=== PATIENT | female | born 1990 | race Caucasian/White ===

== ENCOUNTER → 2021-07-03 04:11 | Outpatient (CLI) | payer OTHER, SELFPAY ==
[2021-07-03 18:05] LABS: SARS-CoV-2 RNA PCR Negative
== END ==
PROVIDERS: PCP Family Medicine; Visit Provider Family Medicine
DX: Z20.822 Contact with and (suspected) exposure to COVID-19 (principal); R05.9 Cough, unspecified
CPT/HCPCS: C9803; U0003; U0005

== ENCOUNTER 2023-08-07 17:08 | Outpatient (CLI) | payer OTHER, SELFPAY ==
[2023-08-07 18:05] LABS: Basophils Percent Auto 0.4 % (0.2-1.2); Eosinophils Absolute Auto 0.1 K/mm3 (0-0.3); Eosinophils Percent Auto 0.6 % (0-4.4); Hematocrit 39.4 % (37.0-47.0); Hemoglobin 12.9 g/dL (12.0-15.0); Immature Granulocyte Absolute 0.03 K/mm3 (0.00-0.031); Immature Granulocyte Percent A 0.3 % (0-0.5); Lymphocytes Absolute Auto 3.13 K/mm3 (0.9-3.2); Lymphocytes Percent Auto 27.7 % (18.3-44.2); Mean Corpuscular HGB Conc 32.7 g/dl (32-36); Mean Corpuscular Hemoglobin 28.5 pg (26-34); Mean Platelet Volume 9.8 fl (7.4-10.4); Monocytes Absolute Auto 0.6 K/mm3 (0.1-0.6); Monocytes Percent Auto 4.9 % (2.6-8.5); Neutrophils Absolute Auto 7.5 K/mm3 (1.3-6.7); Neutrophils Percent Auto 66.1 % (45.5-73.1); Platelet Count Result 283 k/mm3 (150-375); Red Blood Count 4.53 M/mm3 (4.2-5.4); Red Cell Distribution Width 12.6 % (11.5-14.5); White Blood Count 11.3 K/mm3 (4.5-10.0)
[2023-08-07 18:45] LABS: HIV 1/2 Ab P24 Ag Result Negative (Negative)
[2023-08-07 19:53] LABS: Hepatitis B Surface Antigen Negative (Negative); Rubella IgG Antibody 9.5 IU/ML
[2023-08-07 20:24] LABS: Hepatitis B Surface Anti Res Negative
[2023-08-10 13:35] LABS: Rapid Plasma Reagin Non-Reactive (NonReactive)
[2023-08-12 11:22] LABS: CMV IgG Antibody <0.60 U/mL (<0.60)
[2023-08-19 08:48] LABS: CF Result NEGATIVE (NEGATIVE); SMA 2.0 RISK VARIANT NOT DETECTED
[2023-08-19 14:59] LABS: SMA Results Received Yes
== END 2023-08-07 17:09 | disposition home or self-care (01) ==
PROVIDERS: PCP Family Medicine; Visit Provider Obstetrics & Gynecology
DX: N91.2 Amenorrhea, unspecified (principal)
CPT/HCPCS: 36415; 81220; 81329; 84702; 85025; 86592; 86644; 86703; 86706; 86747; 86762; 86787; 86850; 86900; 86901; 87086; 87340; G0432

== ENCOUNTER 2023-08-08 08:39 | Outpatient (CLI) | payer OTHER, SELFPAY ==
[2023-08-08 11:05] LABS: Glucose 1 Hour PP 50gm Dose 112 mg/dL
== END 2023-08-08 08:40 | disposition home or self-care (01) ==
PROVIDERS: PCP Family Medicine; Visit Provider Obstetrics & Gynecology
DX: N91.2 Amenorrhea, unspecified (principal)
CPT/HCPCS: 36415; 82947; 86850; 86900; 86901

== ENCOUNTER 2023-09-27 08:18 | Emergency (ER) | payer OTHER, SELFPAY ==
[2023-09-27 08:25] VITALS: BP 80/61; PULSE 92; RESP 20; TEMP 36.4; O2SAT 98
--- NOTE | 2023-09-27 08:45 | ED.GENADULT ---
HPI - General Adult General Chief complaint: Upper Respiratory Infection Stated complaint: Cough,Congestion,Sore Throat Source: patient Mode of arrival: ambulatory Limitations: no limitations History of Present Illness HPI narrative: Patient presents for evaluation of cough for the last 2 days. Cough is productive of green/ yellow sputum. She denies any fever, chills, nausea, vomiting, diarrhea, otalgia, sore throat, or chest pain. No recent specific sick contacts to her knowledge however she attended several holiday events recently so very well could have come in contact with someone who was ill. She has been taking tylenol for her symptoms. She is currently , 17 weeks gestation. She denies any vaginal bleeding or abdominal pain. She has an underlying history of asthma. Her albuterol inhaler seems to be helping. She took a home COVID test five days ago which was negative. Related Data Home Medications Medication Instructions Recorded Confirmed lamotrigine 100 mg tablet 100 mg PO BID 03/03/23 09/27/23 sertraline 50 mg tablet 50 mg PO DAILY 03/03/23 09/27/23 vit#24-iron amino acid 1 tablet PO DAILY 09/27/23 09/27/23 chelat-folic acid 30 mg-975 mcg tablet Allergies Allergy/AdvReac Type Severity Reaction Status Date / Time Penicillins AdvReac Mild Rash Verified 09/27/23 08:21 Sulfa (Sulfonamide AdvReac Mild Rash Verified 09/27/23 08:51 Antibiotics) Review of Systems Review of Systems: CONSTITUTIONAL: Denies fever, chills, or sweats. EYES: Denies visual changes, redness, or discharge. ENT: Denies rhinorrhea, congestion, sore throat, or otalgia. CARDIOVASCULAR: Denies chest pain, palpitations, or edema. RESPIRATORY: Reports productive cough or yellow/green sputum GASTROINTESTINAL: Denies abdominal pain, nausea, vomiting, or diarrhea. GENITOURINARY: Denies dysuria or hematuria. SKIN: Denies rash or itching. MUSCULOSKELETAL: Denies back pain, joint pain, or myalgia. NEUROLOGIC: Denies headache, numbness, dizziness, or weakness. PSYCHIATRIC: Denies anxiety or depression. [facility] Past Medical History Medical History Asthma rx meds Bipolar 2 disorder rx meds Surgical History Surgical History (Reviewed 09/27/23 @ 08:50 by Romero Richey [facility], ) History of orthopedic surgery (~2010) hand repaired Family History Family History (Reviewed 09/27/23 @ 08:50 by Romero Richey [facility], ) Grandparent CHF (congestive heart failure) maternal grandmother Lung cancer maternal grandfather Social History Social History (Reviewed 09/27/23 @ 08:50 by Romero Richey [facility], ) Smoking status: Never smoker Alcohol intake: never Substance use: never Substance use type: does not use Lack of Transportation: No Lack of Food: Never True Current Housing: I Have Housing Concerned About Future Housing: No Difficulty Paying Gas/Electric Bills: No Difficulty Paying for Meds: No Currently Unemployed: No Education: Bachelor's Degree Difficulty w/ Childcare or Family Care: No Living arrangements: other Additional living arrangements comments: Occupation/Education: occupation Additional occupation/education comments: marketing Gender identity (if verbalized by the patient): Female Sexual Orientation (if Verbalized by the Patient): Straight or Heterosexual Exam Narrative: GENERAL: Well-appearing, well-nourished, and in no acute distress. HEAD: Normocephalic, atraumatic. EYES: PERRLA and EOMI. ENT: Nares clear, no rhinorrhea or epistaxis. Mucous membranes moist. Oropharynx without tonsillar hypertrophy exudate or other lesions. Bilateral TMs pearly hoang nonbulging NECK: Supple. No adenopathy or masses. No carotid bruits or JVD CHEST: Cough present on exam. Clear to auscultation. No respiratory distress. No wheezes rales or rhonchi HEART: Regular rate and rhythm.
== END 2023-09-27 09:03 | disposition home or self-care (01) ==
PROVIDERS: Emergency Provider Nurse Practitioner; PCP Family Medicine
DX: U07.1 COVID-19 (principal); J45.909 Unspecified asthma, uncomplicated; F31.81 Bipolar II disorder
CPT/HCPCS: 87426; 87804; 99213; C9803; G0463

== ENCOUNTER 2023-12-29 13:47 | Outpatient (CLI) | payer BC, SELFPAY ==
[2023-12-29] VITALS (8 sets, daily range): BP systolic 104–120; BP diastolic 69–78; PULSE 79–93
[2023-12-29 14:33] LABS: Basophils Percent Auto 0.4 % (0.2-1.2); Eosinophils Absolute Auto 0.1 K/mm3 (0-0.3); Eosinophils Percent Auto 0.7 % (0-4.4); Hematocrit 37.5 % (37.0-47.0); Immature Granulocyte Absolute 0.16 K/mm3 (0.00-0.031); Immature Granulocyte Percent A 1.5 % (0-0.5); Lymphocytes Absolute Auto 2.56 K/mm3 (0.9-3.2); Lymphocytes Percent Auto 23.4 % (18.3-44.2); Mean Corpuscular Hemoglobin 28.2 pg (26-34); Mean Corpuscular Volume 88.2 fl (80-100); Mean Platelet Volume 9.8 fl (7.4-10.4); Monocytes Absolute Auto 0.6 K/mm3 (0.1-0.6); Monocytes Percent Auto 5.3 % (2.6-8.5); Neutrophils Absolute Auto 7.5 K/mm3 (1.3-6.7); Neutrophils Percent Auto 68.7 % (45.5-73.1); Platelet Count Result 289 k/mm3 (150-375); Red Blood Count 4.25 M/mm3 (4.2-5.4); Red Cell Distribution Width 12.6 % (11.5-14.5)
[2023-12-29 14:41] LABS: Appearance Urine Clear (Clear); Bacteria Urine Rare /hpf; Bilirubin Urine Negative (Negative); Blood Urine Negative (Negative); Color Urine Yellow (Yellow); Glucose Urine UA Negative (Negative); Ketones Urine Negative (Negative); Leukocyte Esterase Ur Trace LEU/UL (Negative); Nitrate Urine Negative (Negative); Non Pathogenic Casts 0-2; Protein Urine Negative (Negative); RBC Urine 0-2 /hpf (0-2); Specific Grav Ur 1.012 (1.001-1.035); Squamous Epithelial Cell Urine None Seen /hpf (Few); Urobilinogen Urine 0.2 mg/dL (<2.0); WBC Urine 0-5 /hpf (0-3); pH Urine 7.5 (5.0-9.0)
[2023-12-29 14:47] LABS: Alanine Aminotransferase 11 U/L (6-35); Albumin Level 3.6 g/dL (3.5-5.1); Alkaline Phosphatase 132 U/L (38-126); Anion Gap 7 mmol/L (4-12); Aspartate Amino Transferase 16 U/L (14-36); Bilirubin,Total 0.4 mg/dL (0.2-1.3); Blood Urea Nitrogen 6 mg/dL (7-17); Calcium 9.1 mg/dL (8.4-10.2); Carbon Dioxide 20 mmol/L (22-30); Chloride 107 mmol/L (98-107); Estimated Glomerular Filt Rate > 60; Glucose 114 mg/dL (65-110); Potassium 3.6 mmol/L (3.4-5.0); Sodium 134 mmol/L (137-145); Uric Acid 2.8 mg/dL (2.5-7.5)
[2023-12-29 14:54] LABS: Add Urine Microscopic? YES
[2023-12-29 15:17] LABS: Creatinine Urine 63.2 mg/dL; Total Protein Urine Random 20 mg/dL; Ur Ttl Prot Creatinine Ratio 0.32 mg/mg (0-0.20)
--- NOTE | 2023-12-29 15:29 | PC.NURSE ---
1528: RN phoned Dr. Murrell no answer at this time.
--- NOTE | 2023-12-29 16:11 | PC.NURSE ---
1546: Dr. Murrell called back, RN reported patient's complaints of swelling, blood pressures, and lab results. Orders to discharge patient home with a 24 hour urine.
== END 2023-12-29 16:06 | disposition home or self-care (01) ==
LOC: ANHOBOP 14:06 → ANHOBPP 14:08
PROVIDERS: PCP Family Medicine; Visit Provider Student in an Organized Health Care Education/Training Program
DX: O13.9 Gestational [pregnancy-induced] hypertension without significant proteinuria, unspecified trimester (principal); Z3A.00 Weeks of gestation of pregnancy not specified
CPT/HCPCS: 36415; 59025; 80053; 81001; 82570; 84156; 84550; 85025; 99199

== ENCOUNTER 2023-12-30 16:29 | Outpatient (CLI) | payer BC, SELFPAY ==
[2023-12-30 17:02] VITALS: BMI 33.7
[2023-12-30 18:43] LABS: Collection Time Urine 24 HOURS
[2023-12-30 18:53] LABS: Total Volume 24 Hour Urine 2050 ml
[2023-12-30 18:54] LABS: Patient Weight 202 Lbs; Total Volume 24 Hour Urine 2050 ml
[2023-12-30 18:59] LABS: Total Protein Urine 24 Hr 348 mg/24hr (28-141); Total Protein Urine Random 17 mg/dL
[2023-12-30 19:00] LABS: Creatinine Clearance Urine 162.5 ml/min (75-125); Creatinine Urine 65.3 mg/dL
== END 2023-12-30 16:30 | disposition home or self-care (01) ==
LOC: ANHOBOP 16:53
PROVIDERS: PCP Family Medicine; Visit Provider Student in an Organized Health Care Education/Training Program
DX: O13.9 Gestational [pregnancy-induced] hypertension without significant proteinuria, unspecified trimester (principal)
CPT/HCPCS: 81050; 82575; 84156

== ENCOUNTER 2024-01-05 20:52 | Outpatient (CLI) | payer BC, SELFPAY ==
[2024-01-05] VITALS (18 sets, daily range): BP systolic 115–122; BP diastolic 70–73; PULSE 70–90; TEMP 36.4; O2SAT 99–100; BMI 33.7
--- NOTE | 2024-01-05 20:52 | PC.NURSE ---
Pt arrives to unit with reports of increased swelling.
[2024-01-05 21:38] LABS: Basophils Percent Auto 0.2 % (0.2-1.2); Eosinophils Absolute Auto 0.1 K/mm3 (0-0.3); Eosinophils Percent Auto 0.6 % (0-4.4); Hematocrit 34.8 % (37.0-47.0); Hemoglobin 11.6 g/dL (12.0-15.0); Immature Granulocyte Absolute 0.11 K/mm3 (0.00-0.031); Immature Granulocyte Percent A 0.9 % (0-0.5); Lymphocytes Absolute Auto 3.29 K/mm3 (0.9-3.2); Lymphocytes Percent Auto 27.2 % (18.3-44.2); Mean Corpuscular HGB Conc 33.3 g/dl (32-36); Mean Corpuscular Hemoglobin 28.7 pg (26-34); Mean Corpuscular Volume 86.1 fl (80-100); Mean Platelet Volume 10.2 fl (7.4-10.4); Monocytes Absolute Auto 0.8 K/mm3 (0.1-0.6); Monocytes Percent Auto 6.8 % (2.6-8.5); Neutrophils Absolute Auto 7.8 K/mm3 (1.3-6.7); Neutrophils Percent Auto 64.3 % (45.5-73.1); Platelet Count Result 240 k/mm3 (150-375); Red Blood Count 4.04 M/mm3 (4.2-5.4); Red Cell Distribution Width 12.7 % (11.5-14.5); White Blood Count 12.1 K/mm3 (4.5-10.0)
[2024-01-05 21:48] LABS: Alanine Aminotransferase 9 U/L (6-35); Albumin Level 3.6 g/dL (3.5-5.1); Alkaline Phosphatase 139 U/L (38-126); Anion Gap 4 mmol/L (4-12); Aspartate Amino Transferase 16 U/L (14-36); Bilirubin,Total 0.3 mg/dL (0.2-1.3); Blood Urea Nitrogen 8 mg/dL (7-17); Calcium 8.7 mg/dL (8.4-10.2); Carbon Dioxide 22 mmol/L (22-30); Chloride 107 mmol/L (98-107); Estimated Glomerular Filt Rate > 60; Glucose 87 mg/dL (65-110); Potassium 3.9 mmol/L (3.4-5.0); Sodium 133 mmol/L (137-145); Uric Acid 2.7 mg/dL (2.5-7.5)
[2024-01-05 21:49] LABS: Creatinine Urine 79.2 mg/dL; Total Protein Urine Random 16 mg/dL
--- NOTE | 2024-01-05 22:17 | PC.NURSE ---
Dr. Leung called, update on pt, blood pressure, labs, and swelling. Orders received to discharge pt with instructions to keep next scheduled appointment and when to return to the unit.
--- NOTE | 2024-01-05 22:24 | PC.NURSE ---
Pt discharged with hypertension in handout, instructions to keep next scheduled appointment, and when to return to the unit.
== END 2024-01-05 22:24 | disposition home or self-care (01) ==
LOC: ANHOBOP 21:03 → ANHOBPP 01-11 06:29
PROVIDERS: PCP Family Medicine; Visit Provider Obstetrics & Gynecology
DX: O12.00 Gestational edema, unspecified trimester (principal); Z3A.00 Weeks of gestation of pregnancy not specified
CPT/HCPCS: 36415; 59025; 80053; 82570; 84156; 84550; 85025; 99199

== ENCOUNTER 2024-01-12 16:08 | Observation (INO) | payer BC, SELFPAY ==
[2024-01-12 16:41] VITALS: BP 121/81; PULSE 92
[2024-01-12 16:44] VITALS: BP 119/81; PULSE 89
[2024-01-12 16:59] VITALS: BP 113/75; PULSE 92
[2024-01-12 17:08] LABS: Appearance Urine Clear (Clear); Bacteria Urine Rare /hpf; Bilirubin Urine Negative (Negative); Blood Urine 3+ (Negative); Color Urine Yellow (Yellow); Glucose Urine UA Negative (Negative); Ketones Urine Trace mg/dL (Negative); Leukocyte Esterase Ur Trace LEU/UL (Negative); Nitrate Urine Negative (Negative); Non Pathogenic Casts 0-2; Protein Urine 1+ mg/dL (Negative); RBC Urine >100 /hpf (0-2); Specific Grav Ur 1.019 (1.001-1.035); Squamous Epithelial Cell Urine Occasional /hpf (Few)
[2024-01-12 17:14] LABS: Add Urine Microscopic? YES
[2024-01-12 17:29] VITALS: BP 119/74; PULSE 83
[2024-01-12] MEDS: TERBUTALINE SULFATE 1 MG/ML VIAL 0.25 MG SUB-Q (17:40)
[2024-01-12 17:59] VITALS: BP 126/83; PULSE 113
[2024-01-12 18:21] VITALS: BMI 34.2
--- NOTE | 2024-01-12 18:21 | OBADM ---
This patient, Debbie Lauren, admitted to the OB room OB Post 113 for observation. Patient/family oriented to hospital policies and general routines including ID bracelet, bed and alarms, visiting hours, pain management, procedures, bathroom and other care routines, personal items, smoking policy, room service/diet, and visiting hours. Patient/Family are encouraged to report perceived risks to care and to ask questions if they do not understand what they are told or what they should do.
[2024-01-12 18:29] VITALS: BP 130/77; PULSE 101
--- NOTE | 2024-01-13 09:12 | PM.OBTRLD ---
OB - Triage/Final Diagnosis Visit Information Reason for evaluation: threatened labor Comments/Additional reasons for admission: I have assessed the risk for this patient, Debbie Lauren, and determined that she would benefit from observation care. Evaluation Laboratory results: Laboratory Tests 01/12/24 16:54 Urine Color Yellow Urine Appearance Clear Urine pH 8.0 Ur Specific [place] 1.019 Urine Protein 1+ H Urine Glucose (UA) Negative Urine Ketones Trace H Ur Blood (Man) 3+ H Urine Nitrate Negative Urine Bilirubin Negative Urine Urobilinogen 1.0 Leukocyte Esterase Rfl Trace H Urine RBC >100 H Urine WBC 6-10 H Ur Squamous Epith Cells Occasional Urine Bacteria Rare Urine Casts 0-2 Vital signs: Vital Signs - 24 hr 01/12/24 16:41 01/12/24 16:44 01/12/24 16:59 Pulse Rate 92 89 92 Blood Pressure 121/81 119/81 113/75 01/12/24 17:29 01/12/24 17:59 01/12/24 18:29 Pulse Rate 83 113 H 101 H Blood Pressure 119/74 126/83 130/77
== END 2024-01-12 18:47 | disposition home or self-care (01) ==
PROVIDERS: Admitting Provider Obstetrics & Gynecology; PCP Family Medicine; Visit Provider Obstetrics & Gynecology
DX: O47.03 False labor before 37 completed weeks of gestation, third trimester (principal); Z3A.32 32 weeks gestation of pregnancy
CPT/HCPCS: 81001; 84112; 87086; 87088; 96372; G0378; G0379; J3105

== ENCOUNTER 2024-01-31 09:57 | Outpatient (CLI) | payer BC, SELFPAY ==
--- NOTE | ~2024-01-31 | US_ITS ---
EXAMINATION: US OB BPP wo non-stress DATE: 01/31/2024 11:50 INDICATION: Nonreassuring heart tones. Third trimester. TECHNIQUE: Real-time pelvic ultrasound was performed. COMPARISON: Ultrasound 01/22/2024 FINDINGS: There is a single living fetus in vertex presentation. The placenta is posterior and on the right. F etal heart rate is 138 beats per minute (bpm). The amniotic fluid index is 14.5 cm, which is normal. Biophysical profile performed by the technologist: breathing (30 sec sustained breathing in 30 minutes): 2 out of 2 movement (3 gross body movements in 30 minutes): 2 out of 2 tone (one episode of evxkdgo-zkgpwoymt-evptpzp limb movement): 2 out of 2 Amniotic fluid pocket (2 cm): 2 out of 2 Total score: 8 out of 8 IMPRESSION: 1. Single living fetus in vertex presentation. 2. Biophysical profile 8 out of 8. Reviewed, dictated and finalized at location A.
--- NOTE | 2024-01-31 10:16 | PC.NURSE ---
pt reports having increased swelling in her face and lower extermities. Pt also reports numbness in her face that is new today. Pt denies blurred vision, no headache, no epigastric pain. Pt does report that the right side of her face has been swelling more but stated that shes been sleeping on her right side more often and the swelling does go down over several hours.
[2024-01-31 10:25] LABS: Basophils Percent Auto 0.4 % (0.2-1.2); Eosinophils Percent Auto 0.3 % (0-4.4); Hematocrit 34.4 % (37.0-47.0); Hemoglobin 11.6 g/dL (12.0-15.0); Immature Granulocyte Percent A 1.1 % (0-0.5); Lymphocytes Absolute Auto 2.57 K/mm3 (0.9-3.2); Lymphocytes Percent Auto 28.1 % (18.3-44.2); Mean Corpuscular HGB Conc 33.7 g/dl (32-36); Mean Corpuscular Hemoglobin 28.3 pg (26-34); Mean Corpuscular Volume 83.9 fl (80-100); Mean Platelet Volume 11.1 fl (7.4-10.4); Monocytes Absolute Auto 0.5 K/mm3 (0.1-0.6); Monocytes Percent Auto 5.6 % (2.6-8.5); Neutrophils Absolute Auto 5.9 K/mm3 (1.3-6.7); Neutrophils Percent Auto 64.5 % (45.5-73.1); Platelet Count Result 198 k/mm3 (150-375); Red Cell Distribution Width 12.8 % (11.5-14.5); White Blood Count 9.1 K/mm3 (4.5-10.0)
[2024-01-31 10:30] VITALS: BP 123/76; PULSE 95
[2024-01-31 10:32] LABS: Appearance Urine Clear (Clear); Bacteria Urine Rare /hpf; Bilirubin Urine Negative (Negative); Blood Urine Negative (Negative); Color Urine Yellow (Yellow); Glucose Urine UA Negative (Negative); Ketones Urine Negative (Negative); Leukocyte Esterase Ur Trace LEU/UL (Negative); Nitrate Urine Negative (Negative); Non Pathogenic Casts 0-2; Protein Urine Trace mg/dL (Negative); RBC Urine 0-2 /hpf (0-2); Specific Grav Ur 1.006 (1.001-1.035); Squamous Epithelial Cell Urine Occasional /hpf (Few); Urobilinogen Urine 0.2 mg/dL (<2.0); WBC Urine 0-5 /hpf (0-3); pH Urine 7.5 (5.0-9.0)
[2024-01-31 10:35] LABS: Add Urine Microscopic? YES; Alanine Aminotransferase 9 U/L (6-35); Albumin Level 3.4 g/dL (3.5-5.1); Alkaline Phosphatase 199 U/L (38-126); Anion Gap 7 mmol/L (4-12); Aspartate Amino Transferase 17 U/L (14-36); Bilirubin,Total 0.4 mg/dL (0.2-1.3); Blood Urea Nitrogen 7 mg/dL (7-17); Carbon Dioxide 20 mmol/L (22-30); Chloride 110 mmol/L (98-107); Estimated Glomerular Filt Rate > 60; Glucose 85 mg/dL (65-110); Potassium 3.9 mmol/L (3.4-5.0); Sodium 137 mmol/L (137-145); Uric Acid 4.4 mg/dL (2.5-7.5)
--- NOTE | 2024-01-31 10:43 | PC.NURSE ---
Dr. Leung updated on pt blood pressures and lab results. MD aware of pt complain of her face having numbness. tracing reviewed with provider. MD order BPP if NST does not become reactive.
[2024-01-31 10:45] VITALS: BP 117/74; PULSE 82
[2024-01-31 10:48] LABS: Creatinine Urine 35.3 mg/dL; Total Protein Urine Random 37 mg/dL; Ur Ttl Prot Creatinine Ratio 1.05 mg/mg (0-0.20)
[2024-01-31 11:00] VITALS: BP 122/77; PULSE 88
--- NOTE | 2024-01-31 11:58 | PC.NURSE ---
Dr. Leung updated on pt. P/C Ratio reported. ordered 24 hour urine be completed and turned in tomorrow so results will be available at her appt with him on Thursday. BPP 05/05. okay with pt going home.
[2024-01-31 12:07] VITALS: BP 123/76; PULSE 93
== END 2024-01-31 12:04 | disposition home or self-care (01) ==
LOC: ANHOBOP 10:01 → ANHOBPP 10:01
PROVIDERS: PCP Family Medicine; Visit Provider Obstetrics & Gynecology
DX: O13.9 Gestational [pregnancy-induced] hypertension without significant proteinuria, unspecified trimester (principal); Z3A.00 Weeks of gestation of pregnancy not specified
CPT/HCPCS: 36415; 59025; 76819; 80053; 81001; 82570; 84156; 84550; 85025; 99199

== ENCOUNTER 2024-02-01 12:35 | Outpatient (NON) | payer BC, SELFPAY ==
[2024-02-01 13:04] VITALS: BMI 35.6
[2024-02-01 13:48] LABS: Collection Time Urine 24 HOURS
[2024-02-01 13:58] LABS: Total Protein Urine Random 44 mg/dL
[2024-02-01 13:59] LABS: Creatinine Urine 101.2 mg/dL; Patient Weight 213 Lbs
[2024-02-01 14:00] LABS: Creatinine Clearance Urine 140.1 ml/min (75-125); Total Protein Urine 24 Hr 616 mg/24hr (28-141); Total Volume 24 Hour Urine 1400 ml
== END 2024-02-01 12:36 | disposition home or self-care (01) ==
LOC: ANHOBOP 12:58
PROVIDERS: PCP Family Medicine; Visit Provider Obstetrics & Gynecology
DX: O13.9 Gestational [pregnancy-induced] hypertension without significant proteinuria, unspecified trimester (principal); Z3A.00 Weeks of gestation of pregnancy not specified
CPT/HCPCS: 36415; 59025; 76819; 80053; 81001; 81050; 82570; 82575; 84156; 84550; 85025; 99199

== ENCOUNTER 2024-02-03 07:27 | Outpatient (CLI) | payer BC, SELFPAY ==
--- NOTE | ~2024-02-03 | US_ITS ---
EXAMINATION: US OB BPP wo non-stress DATE: 02/03/2024 09:19 INDICATION: Nonreactive nonstress test. TECHNIQUE: Real-time pelvic ultrasound was performed. COMPARISON: Ultrasound 01/31/2024 FINDINGS: There is a single living fetus in vertex presentation. The placenta is right posterior, far from the cervix. heart rate is 147 beats per minute (bpm). The deepest vertical pocket is 3.2 cm, which is normal. Biophysical profile performed by the technologist: breathing (30 sec sustained breathing in 30 minutes): 2 out of 2 movement (3 gross body movements in 30 minutes): 2 out of 2 tone (one episode of ulupmdb-kwqvhncws-milkehs limb movement): 2 out of 2 Amniotic fluid pocket (2 cm): 2 out of 2 Total score: 8 out of 8 IMPRESSION: 1. Single living fetus in vertex presentation. 2. Biophysical profile 8 out of 8. Reviewed, dictated and finalized at location A.
[2024-02-03 07:47] VITALS: BP 115/79; PULSE 94
[2024-02-03 08:00] VITALS: BP 114/82; PULSE 90
[2024-02-03 08:02] LABS: Alanine Aminotransferase 10 U/L (6-35); Albumin Level 3.4 g/dL (3.5-5.1); Alkaline Phosphatase 185 U/L (38-126); Anion Gap 8 mmol/L (4-12); Aspartate Amino Transferase 16 U/L (14-36); Bilirubin,Total 0.3 mg/dL (0.2-1.3); Blood Urea Nitrogen 8 mg/dL (7-17); Calcium 8.6 mg/dL (8.4-10.2); Carbon Dioxide 18 mmol/L (22-30); Chloride 109 mmol/L (98-107); Estimated Glomerular Filt Rate > 60; Glucose 109 mg/dL (65-110); Potassium 3.9 mmol/L (3.4-5.0); Sodium 135 mmol/L (137-145); Uric Acid 3.8 mg/dL (2.5-7.5)
[2024-02-03 08:15] VITALS: BP 120/86; PULSE 85
[2024-02-03 08:30] VITALS: BP 125/84; PULSE 86
[2024-02-03 08:58] LABS: Appearance Urine Clear (Clear); Bacteria Urine 1+ /hpf; Bilirubin Urine Negative (Negative); Blood Urine Negative (Negative); Color Urine Yellow (Yellow); Glucose Urine UA Negative (Negative); Ketones Urine Negative (Negative); Leukocyte Esterase Ur 1+ LEU/UL (Negative); Nitrate Urine Negative (Negative); Non Pathogenic Casts 0-2; Protein Urine 1+ mg/dL (Negative); RBC Urine 0-2 /hpf (0-2); Specific Grav Ur 1.009 (1.001-1.035); Squamous Epithelial Cell Urine Occasional /hpf (Few); Urobilinogen Urine 0.2 mg/dL (<2.0); pH Urine 7.5 (5.0-9.0)
--- NOTE | 2024-02-03 09:00 | PC.NURSE ---
0900: OB responded to page. OB stated he is reviewing the tracing, lab results, and blood pressures. Dr. Leung ordered a BPP and would like RN to call him back with the results of BPP and the rest of the lab results.
[2024-02-03 09:03] VITALS: BP 115/79; PULSE 94
[2024-02-03 09:09] LABS: Creatinine Urine 70.5 mg/dL; Total Protein Urine Random 43 mg/dL; Ur Ttl Prot Creatinine Ratio 0.61 mg/mg (0-0.20)
[2024-02-03 09:19] LABS: Add Urine Microscopic? YES
[2024-02-03 09:20] VITALS: BP 115/79; PULSE 87
[2024-02-03 09:23] LABS: Hematocrit 36.1 % (37.0-47.0); Hemoglobin 11.8 g/dL (12.0-15.0); Mean Corpuscular HGB Conc 32.7 g/dl (32-36); Mean Corpuscular Volume 85.7 fl (80-100); Mean Platelet Volume 11.8 fl (7.4-10.4); Platelet Count Result 191 k/mm3 (150-375); Red Blood Count 4.21 M/mm3 (4.2-5.4); Red Cell Distribution Width 12.8 % (11.5-14.5); White Blood Count 9.5 K/mm3 (4.5-10.0)
--- NOTE | 2024-02-03 09:59 | PC.NURSE ---
0940: RN reported BPP of 05/05 and lab results to OB. Orders to discharge patient home with instructions to come for her scheduled NST on Thursday, then perform a 24 hour urine on Thursday to return to the hospital on Thursday. Orders to perform an NST and PIH labs when patient comes to turn in her 24 hour urine sample on Thursday (02/08/24).
== END 2024-02-03 09:50 ==
LOC: ANHOBOP 07:33 → ANHLDR 07:33
PROVIDERS: PCP Family Medicine; Visit Provider Obstetrics & Gynecology
DX: O13.9 Gestational [pregnancy-induced] hypertension without significant proteinuria, unspecified trimester (principal); Z3A.00 Weeks of gestation of pregnancy not specified
CPT/HCPCS: 36415; 59025; 76819; 80053; 81001; 82570; 84156; 84550; 85025; 87086; 87088; 99199

== ENCOUNTER 2024-02-08 07:02 | Outpatient (NON) | payer BC, SELFPAY ==
[2024-02-08 07:37] VITALS: BMI 36.9
[2024-02-08 10:47] LABS: Collection Time Urine 24 HOURS
[2024-02-08 10:57] LABS: Total Protein Urine Random 109 mg/dL
[2024-02-08 10:59] LABS: Creatinine Urine 110.2 mg/dL; Patient Weight 222 Lbs
[2024-02-08 12:16] LABS: Creatinine Clearance Urine 117.8 ml/min (75-125); Total Protein Urine 24 Hr 1199 mg/24hr (28-141); Total Volume 24 Hour Urine 1100 ml
== END 2024-02-08 07:03 | disposition home or self-care (01) ==
LOC: ANHOBOP 07:25
PROVIDERS: PCP Family Medicine; Visit Provider Obstetrics & Gynecology
DX: O14.90 Unspecified pre-eclampsia, unspecified trimester (principal); Z3A.00 Weeks of gestation of pregnancy not specified
CPT/HCPCS: 36415; 59025; 80053; 81050; 82575; 84156; 84550; 85025

== ENCOUNTER 2024-02-12 14:41 | Outpatient (CLI) | payer BC, SELFPAY ==
--- NOTE | 2024-02-12 14:55 | ECHO_ITS ---
Patient Info Name: Debbie Lauren Age: 33 years : 1990 Gender: Female Ht: 65 in Wt: 224 lbs BSA: 2.21 m2 HR: 73 bpm BP: 115 / 102 mmHg Technical Quality: Fair Exam Date: 02/12/2024 3:07 PM Exam Location: Echo Lab Patient Status: Outpatient Admit Date: 02/12/2024 Staff Ordering Physician: Rio Leung MD Hepatology Physician: Gabriel Paredes RDCS Attending Provider: Rio Leung MD Referring Physician: Madhu AMES; Exam Type: CA echo doppler color flow Study Info Indications R60.9 - Edema, unspecified R06.02 - Shortness of breath Complete two-dimensional, color flow and Doppler transthoracic echocardiogram is performed. Summary 1. Complete two-dimensional, color flow and Doppler transthoracic echocardiogram is performed. 2. Left ventricular chamber dimension is mildly enlarged. 3. Left ventricular systolic function is normal, estimated at 55-60%. 4. The left ventricular diastolic function is normal. 5. E/e' 7 is not elevated. 6. There is trace tricuspid valve regurgitation. 7. No pulmonary hypertension, estimated pulmonary arterial systolic pressure is 25 mmHg. Left Ventricle E/e' 7 is not elevated. Left ventricular chamber dimension is mildly enlarged. Left ventricular systolic function is normal, estimated at 55-60%. The left ventricular diastolic function is normal. Right Ventricle Right ventricular systolic function is normal and with normal TAPSE 1.9 cm. Right ventricular chamber dimension is normal. Left Atria Left atrial chamber dimension is normal. Right Atria Right atrial chamber dimension is normal. Aortic Valve The aortic valve is trileaflet. There is no aortic valve stenosis. There is no aortic valve regurgitation. Pulmonic Valve There is no pulmonic regurgitation. Mitral Valve There is no mitral valve stenosis. There is no mitral valve regurgitation. Tricuspid Valve There is trace tricuspid valve regurgitation. No pulmonary hypertension, estimated pulmonary arterial systolic pressure is 25 mmHg. Pericardium/Pleural There is no pericardial effusion. Inferior Vena Cava Normal inferior vena cava with >50% collapse upon inspiration consistent with normal right atrial pressure, 5 mmHg. Aorta The aortic root size at the sinus of Valsalva is normal. Left Ventricular Outflow Tract Name Value Normal LVOT 2D LVOT Diameter 2.0 cm LVOT Doppler LVOT Peak Gradient 4 mmHg LVOT Mean Gradient 2 mmHg LVOT VTI 18 cm LVOT VTI/AV VTI Ratio 0.7 LVOT Stroke Volume 59 ml LVOT CO 4.2 l/min LVOT CI 1.9 l/min/m2 Pulmonic Valve Name Value Normal RVOT Doppler RVOT Peak Gradient 2 mmHg PV Doppler
== END 2024-02-12 14:42 | disposition home or self-care (01) ==
LOC: ANHCARD 14:44
PROVIDERS: PCP Family Medicine; Visit Provider Obstetrics & Gynecology
DX: Z34.90 Encounter for supervision of normal pregnancy, unspecified, unspecified trimester (principal); R60.9 Edema, unspecified; R80.9 Proteinuria, unspecified
CPT/HCPCS: 36415; 59025; 80053; 84550; 85025; 93306

== ENCOUNTER 2024-02-13 20:49 | Outpatient (CLI) | payer BC, SELFPAY ==
[2024-02-13 21:30] VITALS: BP 128/72; PULSE 76
[2024-02-13 21:32] LABS: Basophils Percent Auto 0.3 % (0.2-1.2); Eosinophils Percent Auto 0.4 % (0-4.4); Hematocrit 34.2 % (37.0-47.0); Hemoglobin 11.6 g/dL (12.0-15.0); Lymphocytes Absolute Auto 3.14 K/mm3 (0.9-3.2); Lymphocytes Percent Auto 31.2 % (18.3-44.2); Mean Corpuscular HGB Conc 33.9 g/dl (32-36); Mean Corpuscular Hemoglobin 28.3 pg (26-34); Mean Corpuscular Volume 83.4 fl (80-100); Mean Platelet Volume 10.8 fl (7.4-10.4); Monocytes Absolute Auto 0.7 K/mm3 (0.1-0.6); Monocytes Percent Auto 6.8 % (2.6-8.5); Neutrophils Absolute Auto 6.1 K/mm3 (1.3-6.7); Neutrophils Percent Auto 60.3 % (45.5-73.1); Nucleated Red Blood Cells Perc 0.2 % (0.0-0.2); Platelet Count Result 179 k/mm3 (150-375); Red Cell Distribution Width 12.9 % (11.5-14.5); White Blood Count 10.1 K/mm3 (4.5-10.0)
[2024-02-13 21:39] LABS: Creatinine Urine 260.3 mg/dL
[2024-02-13 21:43] LABS: Alanine Aminotransferase 8 U/L (6-35); Albumin Level 3.3 g/dL (3.5-5.1); Alkaline Phosphatase 209 U/L (38-126); Anion Gap 7 mmol/L (4-12); Aspartate Amino Transferase 16 U/L (14-36); Bilirubin,Total 0.4 mg/dL (0.2-1.3); Blood Urea Nitrogen 10 mg/dL (7-17); Carbon Dioxide 19 mmol/L (22-30); Chloride 108 mmol/L (98-107); Estimated Glomerular Filt Rate > 60; Glucose 86 mg/dL (65-110); Potassium 3.8 mmol/L (3.4-5.0); Sodium 134 mmol/L (137-145); Uric Acid 4.2 mg/dL (2.5-7.5)
[2024-02-13 21:44] LABS: Appearance Urine Cloudy (Clear); Bacteria Urine 3+ /hpf; Bilirubin Urine Negative (Negative); Blood Urine Negative (Negative); Color Urine Dark Yellow (Yellow); Glucose Urine UA Negative (Negative); Ketones Urine Trace mg/dL (Negative); Leukocyte Esterase Ur 1+ LEU/UL (Negative); Need Manual Microscopic Reviewed; Nitrate Urine Negative (Negative); Protein Urine 4+ mg/dL (Negative); Squamous Epithelial Cell Urine Moderate /hpf (Few); WBC Urine 21-50 /hpf (0-3)
[2024-02-13 21:45] VITALS: BP 131/85; PULSE 77
[2024-02-13 21:45] LABS: Add Urine Microscopic? YES; Specific Grav Ur 1.032 (1.001-1.035)
[2024-02-13 21:59] LABS: Total Protein Urine Random > 600 mg/dL
[2024-02-13 22:00] VITALS: BP 122/69; PULSE 74
== END 2024-02-13 22:19 | disposition home or self-care (01) ==
LOC: ANHOBOP 20:55 → ANHOBPP 22:14
PROVIDERS: Obstetrics & Gynecology; PCP Family Medicine; Visit Provider Obstetrics & Gynecology
DX: O13.9 Gestational [pregnancy-induced] hypertension without significant proteinuria, unspecified trimester (principal); Z3A.00 Weeks of gestation of pregnancy not specified
CPT/HCPCS: 36415; 59025; 80053; 81001; 82570; 84156; 84550; 85025; 87086; 87088; 99199

== ENCOUNTER 2024-02-15 07:31 | Outpatient (RCR) | payer BC, SELFPAY ==
[2024-01-15 08:03] VITALS: BP 114/76; PULSE 84
[2024-01-22 09:36] VITALS: BP 120/77; PULSE 82
[2024-01-29 08:43] VITALS: BP 122/77; PULSE 101
[2024-02-05 13:15] VITALS: BP 117/75; PULSE 87
[2024-02-06 09:56] LABS: Basophils Percent Auto 0.4 % (0.2-1.2); Eosinophils Percent Auto 0.4 % (0-4.4); Hematocrit 35.6 % (37.0-47.0); Hemoglobin 11.7 g/dL (12.0-15.0); Immature Granulocyte Absolute 0.09 K/mm3 (0.00-0.031); Immature Granulocyte Percent A 0.9 % (0-0.5); Lymphocytes Percent Auto 27.9 % (18.3-44.2); Mean Corpuscular HGB Conc 32.9 g/dl (32-36); Mean Corpuscular Hemoglobin 28.1 pg (26-34); Mean Corpuscular Volume 85.6 fl (80-100); Mean Platelet Volume 11.1 fl (7.4-10.4); Monocytes Absolute Auto 0.6 K/mm3 (0.1-0.6); Neutrophils Absolute Auto 6.2 K/mm3 (1.3-6.7); Neutrophils Percent Auto 64.4 % (45.5-73.1); Platelet Count Result 189 k/mm3 (150-375); Red Blood Count 4.16 M/mm3 (4.2-5.4); Red Cell Distribution Width 12.8 % (11.5-14.5); White Blood Count 9.7 K/mm3 (4.5-10.0)
[2024-02-06 10:07] LABS: Alanine Aminotransferase 8 U/L (6-35); Albumin Level 3.4 g/dL (3.5-5.1); Alkaline Phosphatase 204 U/L (38-126); Anion Gap 6 mmol/L (4-12); Aspartate Amino Transferase 16 U/L (14-36); Bilirubin,Total 0.4 mg/dL (0.2-1.3); Blood Urea Nitrogen 8 mg/dL (7-17); Calcium 8.7 mg/dL (8.4-10.2); Carbon Dioxide 19 mmol/L (22-30); Chloride 110 mmol/L (98-107); Estimated Glomerular Filt Rate > 60; Glucose 76 mg/dL (65-110); Potassium 4.1 mmol/L (3.4-5.0); Sodium 135 mmol/L (137-145); Uric Acid 3.8 mg/dL (2.5-7.5)
[2024-02-06 10:40] VITALS: BP 127/78; PULSE 83
[2024-02-08 07:35] LABS: Basophils Percent Auto 0.5 % (0.2-1.2); Eosinophils Absolute Auto 0.1 K/mm3 (0-0.3); Eosinophils Percent Auto 0.7 % (0-4.4); Hemoglobin 11.6 g/dL (12.0-15.0); Immature Granulocyte Percent A 1.2 % (0-0.5); Lymphocytes Absolute Auto 2.47 K/mm3 (0.9-3.2); Lymphocytes Percent Auto 28.5 % (18.3-44.2); Mean Corpuscular HGB Conc 33.1 g/dl (32-36); Mean Corpuscular Hemoglobin 28.2 pg (26-34); Mean Corpuscular Volume 85.2 fl (80-100); Monocytes Absolute Auto 0.5 K/mm3 (0.1-0.6); Monocytes Percent Auto 5.2 % (2.6-8.5); Neutrophils Absolute Auto 5.6 K/mm3 (1.3-6.7); Neutrophils Percent Auto 63.9 % (45.5-73.1); Platelet Count Result 172 k/mm3 (150-375); Red Blood Count 4.11 M/mm3 (4.2-5.4); Red Cell Distribution Width 12.8 % (11.5-14.5); White Blood Count 8.7 K/mm3 (4.5-10.0)
[2024-02-08 08:05] LABS: Alanine Aminotransferase 10 U/L (6-35); Albumin Level 3.2 g/dL (3.5-5.1); Alkaline Phosphatase 199 U/L (38-126); Anion Gap 5 mmol/L (4-12); Aspartate Amino Transferase 17 U/L (14-36); Bilirubin,Total 0.3 mg/dL (0.2-1.3); Blood Urea Nitrogen 8 mg/dL (7-17); Calcium 8.3 mg/dL (8.4-10.2); Carbon Dioxide 20 mmol/L (22-30); Chloride 108 mmol/L (98-107); Estimated Glomerular Filt Rate > 60; Glucose 99 mg/dL (65-110); Potassium 3.8 mmol/L (3.4-5.0); Sodium 133 mmol/L (137-145); Uric Acid 3.9 mg/dL (2.5-7.5)
[2024-02-08 08:16] VITALS: BP 116/70; PULSE 84
[2024-02-11 07:48] LABS: Basophils Percent Auto 0.4 % (0.2-1.2); Eosinophils Absolute Auto 0.1 K/mm3 (0-0.3); Eosinophils Percent Auto 0.6 % (0-4.4); Hematocrit 35.5 % (37.0-47.0); Hemoglobin 11.9 g/dL (12.0-15.0); Immature Granulocyte Absolute 0.09 K/mm3 (0.00-0.031); Immature Granulocyte Percent A 0.9 % (0-0.5); Lymphocytes Absolute Auto 3.09 K/mm3 (0.9-3.2); Lymphocytes Percent Auto 31.2 % (18.3-44.2); Mean Corpuscular HGB Conc 33.5 g/dl (32-36); Mean Corpuscular Hemoglobin 28.4 pg (26-34); Mean Corpuscular Volume 84.7 fl (80-100); Mean Platelet Volume 11.2 fl (7.4-10.4); Monocytes Absolute Auto 0.5 K/mm3 (0.1-0.6); Monocytes Percent Auto 4.6 % (2.6-8.5); Neutrophils Absolute Auto 6.2 K/mm3 (1.3-6.7); Neutrophils Percent Auto 62.3 % (45.5-73.1); Platelet Count Result 182 k/mm3 (150-375); Red Blood Count 4.19 M/mm3 (4.2-5.4); Red Cell Distribution Width 13.1 % (11.5-14.5); White Blood Count 9.9 K/mm3 (4.5-10.0)
[2024-02-11 08:27] VITALS: BP 122/80; PULSE 85
[2024-02-11 08:48] LABS: Alanine Aminotransferase 10 U/L (6-35); Albumin Level 3.4 g/dL (3.5-5.1); Alkaline Phosphatase 228 U/L (38-126); Anion Gap 6 mmol/L (4-12); Aspartate Amino Transferase 18 U/L (14-36); Bilirubin,Total 0.3 mg/dL (0.2-1.3); Blood Urea Nitrogen 8 mg/dL (7-17); Calcium 8.7 mg/dL (8.4-10.2); Carbon Dioxide 18 mmol/L (22-30); Chloride 110 mmol/L (98-107); Estimated Glomerular Filt Rate > 60; Glucose 102 mg/dL (65-110); Potassium 3.9 mmol/L (3.4-5.0); Sodium 134 mmol/L (137-145); Uric Acid 4.2 mg/dL (2.5-7.5)
[2024-02-12 16:21] LABS: Basophils Percent Auto 0.3 % (0.2-1.2); Eosinophils Percent Auto 0.3 % (0-4.4); Hemoglobin 12.4 g/dL (12.0-15.0); Immature Granulocyte Absolute 0.11 K/mm3 (0.00-0.031); Immature Granulocyte Percent A 1.1 % (0-0.5); Lymphocytes Absolute Auto 2.98 K/mm3 (0.9-3.2); Lymphocytes Percent Auto 30.7 % (18.3-44.2); Mean Corpuscular HGB Conc 33.5 g/dl (32-36); Mean Corpuscular Hemoglobin 28.4 pg (26-34); Mean Corpuscular Volume 84.7 fl (80-100); Mean Platelet Volume 10.9 fl (7.4-10.4); Monocytes Absolute Auto 0.6 K/mm3 (0.1-0.6); Monocytes Percent Auto 6.2 % (2.6-8.5); Neutrophils Percent Auto 61.4 % (45.5-73.1); Platelet Count Result 200 k/mm3 (150-375); Red Blood Count 4.37 M/mm3 (4.2-5.4); White Blood Count 9.7 K/mm3 (4.5-10.0)
[2024-02-12 16:36] LABS: Alanine Aminotransferase 9 U/L (6-35); Albumin Level 3.7 g/dL (3.5-5.1); Alkaline Phosphatase 231 U/L (38-126); Anion Gap 7 mmol/L (4-12); Aspartate Amino Transferase 18 U/L (14-36); Bilirubin,Total 0.4 mg/dL (0.2-1.3); Blood Urea Nitrogen 9 mg/dL (7-17); Calcium 9.2 mg/dL (8.4-10.2); Carbon Dioxide 21 mmol/L (22-30); Chloride 106 mmol/L (98-107); Estimated Glomerular Filt Rate > 60; Glucose 81 mg/dL (65-110); Potassium 4.1 mmol/L (3.4-5.0); Sodium 134 mmol/L (137-145); Uric Acid 4.3 mg/dL (2.5-7.5)
[2024-02-12 17:12] VITALS: BP 127/85; PULSE 80
--- NOTE | ~2024-02-15 | US_ITS ---
EXAMINATION: US OB BPP wo non-stress DATE: 01/22/2024 09:36 INDICATION: Nonreactive TECHNIQUE: Real-time pelvic ultrasound was performed. The interpreting radiologist was not present fo r the study. COMPARISON: None. FINDINGS: There is a single living fetus in vertex presentation. The placenta is posterior. cardiac acti vity and movement are demonstrated. heart rate is 171 beats per minute (bpm). Biophysical profile performed by the technologist: breathing (30 sec sustained breathing in 30 minutes): 2 out of 2 movement (3 gross body movements in 30 minutes): 2 out of 2 tone (one episode of nuhgeof-pocthqieh-ivzgbog limb movement): 2 out of 2 Amniotic fluid pocket (2 cm): 2 out of 2 Total score: 8 out of 8 IMPRESSION: 1. Single living intrauterine in vertex presentation with heart rate of 171 bpm. 2. Normal placenta. 3. Biophysical profile 8 out of 8. Reviewed, dictated and finalized at location B.
--- NOTE | ~2024-02-15 | US_ITS ---
EXAMINATION: US OB BPP wo non-stress DATE: 02/05/2024 09:38 INDICATION: Preeclampsia. Third trimester. TECHNIQUE: Real-time pelvic ultrasound was performed. COMPARISON: Ultrasound 02/03/2024 FINDINGS: There is a single living fetus in vertex presentation. The placenta is right posterior. heart rate is 141 beats per minute (bpm). The deepest vertical pocket is 5.5 cm, which is normal. Biophysical profile performed by the technologist: breathing (30 sec sustained breathing in 30 minutes): 2 out of 2 movement (3 gross body movements in 30 minutes): 2 out of 2 tone (one episode of jctsury-ezyiwjnwp-zixtrzv limb movement): 2 out of 2 Amniotic fluid pocket (2 cm): 2 out of 2 Total score: 8 out of 8 IMPRESSION: 1. Single living fetus in vertex presentation. 2. Biophysical profile 8 out of 8. Reviewed, dictated and finalized at location A.
[2024-02-15 07:52] LABS: Basophils Percent Auto 0.3 % (0.2-1.2); Eosinophils Percent Auto 0.4 % (0-4.4); Hematocrit 34.8 % (37.0-47.0); Hemoglobin 11.6 g/dL (12.0-15.0); Immature Granulocyte Absolute 0.09 K/mm3 (0.00-0.031); Lymphocytes Absolute Auto 2.82 K/mm3 (0.9-3.2); Lymphocytes Percent Auto 31.4 % (18.3-44.2); Mean Corpuscular HGB Conc 33.3 g/dl (32-36); Mean Corpuscular Hemoglobin 27.8 pg (26-34); Mean Corpuscular Volume 83.5 fl (80-100); Monocytes Absolute Auto 0.4 K/mm3 (0.1-0.6); Monocytes Percent Auto 4.2 % (2.6-8.5); Neutrophils Absolute Auto 5.6 K/mm3 (1.3-6.7); Neutrophils Percent Auto 62.7 % (45.5-73.1); Platelet Count Result 183 k/mm3 (150-375); Red Blood Count 4.17 M/mm3 (4.2-5.4); Red Cell Distribution Width 12.9 % (11.5-14.5)
[2024-02-15 08:02] LABS: Alanine Aminotransferase 10 U/L (6-35); Albumin Level 3.3 g/dL (3.5-5.1); Alkaline Phosphatase 216 U/L (38-126); Anion Gap 10 mmol/L (4-12); Aspartate Amino Transferase 17 U/L (14-36); Bilirubin,Total 0.4 mg/dL (0.2-1.3); Blood Urea Nitrogen 9 mg/dL (7-17); Calcium 8.3 mg/dL (8.4-10.2); Carbon Dioxide 16 mmol/L (22-30); Chloride 109 mmol/L (98-107); Estimated Glomerular Filt Rate > 60; Glucose 102 mg/dL (65-110); Potassium 3.9 mmol/L (3.4-5.0); Sodium 135 mmol/L (137-145); Uric Acid 4.7 mg/dL (2.5-7.5)
[2024-02-15 08:20] VITALS: BP 122/87; PULSE 81
== END 2024-03-14 08:14 | disposition home or self-care (01) ==
LOC: ANHOBOP 07:31
PROVIDERS: Obstetrics & Gynecology; PCP Family Medicine; Visit Provider Obstetrics & Gynecology
DX: O14.93 Unspecified pre-eclampsia, third trimester (principal); Z3A.33 33 weeks gestation of pregnancy; Z3A.35 35 weeks gestation of pregnancy; Z3A.36 36 weeks gestation of pregnancy; Z3A.37 37 weeks gestation of pregnancy
CPT/HCPCS: 36415; 59025; 76819; 80053; 84550; 85025

== ENCOUNTER 2024-02-16 04:57 | Inpatient (IN) | payer BC, SELFPAY ==
[2024-02-16] VITALS (66 sets, daily range): BP systolic 113–155; BP diastolic 74–112; PULSE 32–96; TEMP 36.2–37.1; O2SAT 76–100; BMI 36.6
--- NOTE | 2024-02-16 05:29 | LDADM ---
This patient, Debbie Lauren, was admitted to Labor/Delivery/Recovery 106 on 02/16/24 at 04:57. Plans for labor, pain management and were discussed with patient. Patient/family oriented to hospital policies and general routines including ID bracelet, bed and alarms, visiting hours, pain management, procedures, bathroom and other care routines, personal items, smoking policy, room service/diet and guest tray routines, infant security routines, and visiting hours. Patient/Family are encouraged to report perceived risks to care and to ask questions if they do not understand what they are told or what they should do. See OBIX for further documentation.
[2024-02-16 05:58] LABS: Basophils Absolute Auto 0.1 K/mm3 (0.0-0.1); Basophils Percent Auto 0.5 % (0.2-1.2); Eosinophils Percent Auto 0.4 % (0-4.4); Hematocrit 36.9 % (37.0-47.0); Hemoglobin 11.9 g/dL (12.0-15.0); Immature Granulocyte Absolute 0.11 K/mm3 (0.00-0.031); Immature Granulocyte Percent A 1.1 % (0-0.5); Lymphocytes Absolute Auto 3.47 K/mm3 (0.9-3.2); Mean Corpuscular HGB Conc 32.2 g/dl (32-36); Mean Corpuscular Hemoglobin 28.7 pg (26-34); Mean Corpuscular Volume 88.9 fl (80-100); Mean Platelet Volume 11.4 fl (7.4-10.4); Monocytes Absolute Auto 0.5 K/mm3 (0.1-0.6); Monocytes Percent Auto 5.4 % (2.6-8.5); Neutrophils Absolute Auto 5.7 K/mm3 (1.3-6.7); Neutrophils Percent Auto 57.6 % (45.5-73.1); Platelet Count Result 184 k/mm3 (150-375); Red Blood Count 4.15 M/mm3 (4.2-5.4); White Blood Count 9.9 K/mm3 (4.5-10.0)
[2024-02-16] MEDS: OXYTOCIN 30 UNITS/NS 500 ML 30 UNITS/500 ML BAG 6 UNITS IV CONT (06:04)
[2024-02-16] MEDS: LACTATED RINGERS 1,000 ML 125 ML IV CONT ×2 (06:05→13:59)
[2024-02-16 06:09] LABS: Alanine Aminotransferase 9 U/L (6-35); Albumin Level 3.3 g/dL (3.5-5.1); Alkaline Phosphatase 224 U/L (38-126); Anion Gap 6 mmol/L (4-12); Aspartate Amino Transferase 20 U/L (14-36); Bilirubin,Total 0.4 mg/dL (0.2-1.3); Blood Urea Nitrogen 11 mg/dL (7-17); Calcium 8.8 mg/dL (8.4-10.2); Carbon Dioxide 19 mmol/L (22-30); Chloride 109 mmol/L (98-107); Estimated CRCL calculation 116 ml/min; Estimated Glomerular Filt Rate > 60; Glucose 104 mg/dL (65-110); Potassium 3.8 mmol/L (3.4-5.0); Sodium 134 mmol/L (137-145)
[2024-02-16 13:43] LABS: Rapid Plasma Reagin Non-Reactive (NonReactive)
[2024-02-16] MEDS: DINOPROSTONE 10 MG VAG INSERT VAGINAL (15:52)
--- NOTE | 2024-02-16 20:40 | PHAR ---
PT'S HOME MEDS LAMOTRIGINE 100 MG TABS AND SERTRALINE 100 MG TABS VERIFIED BY PHARMACY
--- NOTE | 2024-02-16 23:07 | PC.NURSE ---
2308: Cervidil pulled at 2138 by Joseph Neal RN. placed IUPC and performed cervical exam at 2236. Pitocin restarted at 6 milliunit/hr per orders @ 2300 Joseph Neal RN.
[2024-02-17] VITALS (244 sets, daily range): BP systolic 103–144; BP diastolic 56–108; PULSE 67–206; RESP 18–20; TEMP 36.3–38.8; O2SAT 87–100
[2024-02-17] MEDS: LACTATED RINGERS 1,000 ML 125 ML IV CONT (09:32)
[2024-02-17] MEDS: ONDANSETRON INJ 4 MG/2 ML VIAL IV PUSH (12:08)
[2024-02-17] MEDS: DEXTROSE 5%/LACTATED RINGERS 1,000 ML 125 ML IV CONT (12:19)
[2024-02-17] MEDS: ACETAMINOPHEN 500 MG TABLET 1000 MG PO (12:30)
[2024-02-17] MEDS: CLINDAMYCIN 900 MG/D5W 50 ML 900 MG/50 ML PIGGYBACK 50 MG IVPB ×2 (12:31→20:25)
[2024-02-17] MEDS: OXYTOCIN 30 UNITS/NS 500 ML 30 UNITS/500 ML BAG 6 UNITS IV CONT (14:00)
--- NOTE | 2024-02-17 14:44 | WPDHPUPDATE1 ---
History and Physical Update Update Date/Time: 02/17/24 14:44 History and Physical has been reviewed, including an updated exam of the patient. There are NO changes in the patient's condition. Risks, benefits, and alternatives have been discussed and questions answered. Patient agrees to proceed with procedure.
--- NOTE | 2024-02-17 14:44 | WPDOBADMIT ---
Obstetrics - Admit Note Admission Note: record reviewed. No pertinent additions to the history and/or any subsequent changes in the physical findings that are not consistent with the expected course of the were found. Additions to the history and/or subsequent changes in the physical findings follow. None.
--- NOTE | 2024-02-17 14:44 | PM.OBPRVD ---
OB - Vaginal Delivery Note Procedure Delivery date: 02/17/24 Events: Other (proteinuria) Intrapartal Events: Chorioamnionitis Induction method: Per Pitocin Protocol Delivery augmentation: Rupture of Membranes and Pitocin Delivery monitor: External FHT and Internal Uterine Route of delivery: Episiotomy description: None Laceration Description: Periurethral Delivery repair: chromic Specimen: Yes Quantitative Blood Loss (ml): 300 Anesthesia type: Epidural Disposition: Floor Complications: No immediate complications Narrative: patient prepped and draped in usual manner for this procedure. Maternal expulsive vertex over intact perineum rest of baby delivered without difficulty. Cord clamped cut baby passed off the operative field to the information management manager who was in attendance. Placenta delivered spontaneously uterus was well contracted. Small amount of oozing for periurethral laceration which was rendered hemostatic a yzlafn-xa-kphrk suture 2-0 chromic. Uterus well contracted and minimal bleeding. Procedure was considered terminated. [place] Baby Weeks of gestation at delivery: 38 gender: Female presentation: vertex Cord Vessel Description: 3 Vessels
[2024-02-17 15:24] LABS: Basophils Percent Auto 0.2 % (0.2-1.2); Hematocrit 31.6 % (37.0-47.0); Hemoglobin 10.3 g/dL (12.0-15.0); Immature Granulocyte Absolute 0.13 K/mm3 (0.00-0.031); Immature Granulocyte Percent A 0.7 % (0-0.5); Lymphocytes Absolute Auto 1.33 K/mm3 (0.9-3.2); Lymphocytes Percent Auto 7.6 % (18.3-44.2); Mean Corpuscular HGB Conc 32.6 g/dl (32-36); Mean Corpuscular Hemoglobin 27.8 pg (26-34); Mean Corpuscular Volume 85.2 fl (80-100); Mean Platelet Volume 11.4 fl (7.4-10.4); Monocytes Absolute Auto 0.8 K/mm3 (0.1-0.6); Monocytes Percent Auto 4.4 % (2.6-8.5); Neutrophils Absolute Auto 15.2 K/mm3 (1.3-6.7); Neutrophils Percent Auto 87.1 % (45.5-73.1); Platelet Count Result 139 k/mm3 (150-375); Red Blood Count 3.71 M/mm3 (4.2-5.4); Red Cell Distribution Width 12.8 % (11.5-14.5); White Blood Count 17.5 K/mm3 (4.5-10.0)
[2024-02-17 15:34] LABS: Alanine Aminotransferase 9 U/L (6-35); Albumin Level 2.5 g/dL (3.5-5.1); Alkaline Phosphatase 237 U/L (38-126); Anion Gap 6 mmol/L (4-12); Aspartate Amino Transferase 21 U/L (14-36); Bilirubin,Total 0.5 mg/dL (0.2-1.3); Blood Urea Nitrogen 13 mg/dL (7-17); Calcium 7.5 mg/dL (8.4-10.2); Carbon Dioxide 15 mmol/L (22-30); Chloride 109 mmol/L (98-107); Estimated CRCL calculation 92 ml/min; Estimated Glomerular Filt Rate > 60; Glucose 79 mg/dL (65-110); Potassium 3.5 mmol/L (3.4-5.0); Sodium 130 mmol/L (137-145)
--- NOTE | 2024-02-17 17:40 | PC.NURSE ---
Patient transferred to post room #279 per wheelchair from labor and delivery. Support person present. Oriented to unit, room, information board, rooming in, admission packet and security measures. Patient verbalizes understanding.
[2024-02-17] MEDS: IBUPROFEN 600 MG TABLET PO (18:36)
[2024-02-18] MEDS: CLINDAMYCIN 900 MG/D5W 50 ML 900 MG/50 ML PIGGYBACK 50 MG IVPB (04:40)
[2024-02-18 05:02] VITALS: BP 118/81; PULSE 87; RESP 20; TEMP 36.6; O2SAT 99
[2024-02-18] MEDS: IBUPROFEN 600 MG TABLET PO ×3 (05:28→19:02)
[2024-02-18 05:45] LABS: Alanine Aminotransferase 8 U/L (6-35); Albumin Level 2.4 g/dL (3.5-5.1); Alkaline Phosphatase 166 U/L (38-126); Anion Gap 4 mmol/L (4-12); Aspartate Amino Transferase 25 U/L (14-36); Bilirubin,Total 0.3 mg/dL (0.2-1.3); Blood Urea Nitrogen 15 mg/dL (7-17); Calcium 7.8 mg/dL (8.4-10.2); Carbon Dioxide 19 mmol/L (22-30); Chloride 112 mmol/L (98-107); Estimated CRCL calculation 92 ml/min; Estimated Glomerular Filt Rate > 60; Glucose 88 mg/dL (65-110); Potassium 3.8 mmol/L (3.4-5.0); Sodium 135 mmol/L (137-145)
[2024-02-18 06:04] LABS: Basophils Absolute Auto 0.1 K/mm3 (0.0-0.1); Basophils Percent Auto 0.4 % (0.2-1.2); Eosinophils Absolute Auto 0.1 K/mm3 (0-0.3); Eosinophils Percent Auto 0.2 % (0-4.4); Hematocrit 25.8 % (37.0-47.0); Hemoglobin 8.3 g/dL (12.0-15.0); Immature Granulocyte Absolute 1.11 K/mm3 (0.00-0.031); Immature Granulocyte Percent A 3.7 % (0-0.5); Lymphocytes Absolute Auto 1.82 K/mm3 (0.9-3.2); Lymphocytes Percent Auto 6.1 % (18.3-44.2); Mean Corpuscular HGB Conc 32.2 g/dl (32-36); Mean Corpuscular Hemoglobin 28.2 pg (26-34); Mean Corpuscular Volume 87.8 fl (80-100); Monocytes Absolute Auto 1.3 K/mm3 (0.1-0.6); Monocytes Percent Auto 4.4 % (2.6-8.5); Neutrophils Absolute Auto 25.5 K/mm3 (1.3-6.7); Neutrophils Percent Auto 85.2 % (45.5-73.1); Platelet Count Result 147 k/mm3 (150-375); Red Blood Count 2.94 M/mm3 (4.2-5.4); Red Cell Distribution Width 13.2 % (11.5-14.5); White Blood Count 29.9 K/mm3 (4.5-10.0)
[2024-02-18] MEDS: POLYSACCHARIDE IRON COMPLEX 150 MG CAPSULE PO ×2 (08:53→16:35)
[2024-02-18] MEDS: DOCUSATE SODIUM 100 MG CAPSULE PO (08:54)
[2024-02-18] MEDS: MULTIVIT/MIN/PREN/FOL AC/IRON TABLET 1 TAB PO (08:54)
[2024-02-18 09:00] VITALS: BP 129/65; PULSE 91; RESP 16; TEMP 37.1; O2SAT 99
[2024-02-18 13:02] VITALS: BP 129/85; PULSE 101; RESP 16; TEMP 37.3; O2SAT 99
[2024-02-18] MEDS: ACETAMINOPHEN 325 MG TABLET 650 MG PO ×2 (13:33→20:17)
--- NOTE | 2024-02-18 14:12 | PM.OBPNVD ---
OB - PN: Subj Subjective Date/time seen: 02/18/24 14:12 S: Diet ambulation tolerated. Pain well controlled. Overall feels well. O: VSS afebrile Abdomen: Positive bowel sounds soft fundus nontender Labs: Noted A: 1. day 1 status post vaginal delivery... doing well from an operative standpoint, no significant plants or concerns 2. Chorioamnionitis... white blood cell count today noted, patient clinically no evidence of infection. Will monitor closely. 3. Proteinuria/edema...BUN/ creatinine normal today. will continue to monitor daily. She is beginning to diurese, would expect edema to improve. I discussed with her that we will repeat 24hour urine after discharge. P: Routine care as well as above. OB - PN: Obj Data Labs 02/18/24 04:49 02/18/24 04:49 Labs: Laboratory Results - last 24 hr 02/17/24 02/18/24 14:57 04:49 WBC 17.5 H 29.9 H RBC 3.71 L 2.94 L Hgb 10.3 L 8.3 L Hct 31.6 L 25.8 L MCV 85.2 87.8 MCH 27.8 28.2 MCHC 32.6 32.2 RDW 12.8 13.2 Plt Count 139 L 147 L MPV 11.4 H 12.0 H Immature Gran % (Auto) 0.7 H 3.7 H Neut % (Auto) 87.1 H 85.2 H Lymph % (Auto) 7.6 L 6.1 L [place] % (Auto) 4.4 4.4 Eos % (Auto) 0.0 0.2 Baso % (Auto) 0.2 0.4 Lymph # (Auto) 1.33 1.82 [place] # (Auto) 0.8 H 1.3 H Eos # (Auto) 0.0 0.1 Baso # (Auto) 0.0 0.1 Abs Immat Gran (auto) 0.13 H 1.11 H Absolute Neuts (auto) 15.2 H 25.5 H Absolute Nucleated RBC 0.000 0.000 Nucleated RBC % 0.0 0.0 Sodium 130 L 135 L Potassium 3.5 3.8 Chloride 109 H 112 H Carbon Dioxide 15 L 19 L Anion Gap 6 4 BUN 13 15 Creatinine 0.90 0.90 Estim Creat Clear Calc 92 92 Estimated GFR > 60 > 60 Glucose 79 88 Calcium 7.5 L 7.8 L Total Bilirubin 0.5 0.3 AST 21 25 ALT 9 8 Alkaline Phosphatase 237 H 166 H Total Protein 5.0 L 5.0 L Albumin 2.5 L 2.4 L OB - PN A/P Time Spent With Patient Time: Total time spent is greater than 50% in coordination of care (as documented) at patient's floor/unit and/or counseling patient:
--- NOTE | 2024-02-18 15:56 | WPDANLDPN2 ---
Anes-Prog Note L&D Date/Time: 02/18/24 15:56 Comfortable throughout: labor and delivery Neuraxial method: epidural Epidural/Spinal procedure site: clean & non-tender Neuro status: Neuro function grossly intact. Cardiovascular status: normal Respiratory status: normal Airway patency: baseline Mental status: baseline Post-Op hydration status: normal Vital Signs: Last Vital Signs Temp 37.3 C 02/18/24 13:02 Pulse 101 H 02/18/24 13:02 Resp 16 02/18/24 13:02 BP 129/85 02/18/24 13:02 Pulse Ox 99 02/18/24 13:02 O2 Del Method Room Air 02/16/24 05:29 Pain score (VAS): 10/07 I/O: Intake & Output 02/17/24 02/18/24 02/18/24 23:59 07:59 15:59 Intake Total 50 240 Output Total 200 300 750 Balance -150 -300 -510 Post-procedural complaints: none Patient feedback: Patient satisfied with anesthetic care.
[2024-02-18 16:00] VITALS: BP 128/81; PULSE 88; TEMP 36.9
[2024-02-18 20:00] VITALS: BP 121/81; PULSE 101; RESP 18; TEMP 37.3; O2SAT 96
[2024-02-18] MEDS: SENNA/DOCUSATE SODIUM TABLET 2 TAB PO (21:31)
[2024-02-19] MEDS: IBUPROFEN 600 MG TABLET PO ×2 (01:31→08:50)
[2024-02-19 04:11] LABS: Basophils Percent Auto 0.3 % (0.2-1.2); Eosinophils Absolute Auto 0.1 K/mm3 (0-0.3); Eosinophils Percent Auto 0.5 % (0-4.4); Hematocrit 26.9 % (37.0-47.0); Hemoglobin 8.6 g/dL (12.0-15.0); Immature Granulocyte Absolute 0.42 K/mm3 (0.00-0.031); Immature Granulocyte Percent A 2.8 % (0-0.5); Immature Platelet Fraction Pct 5.2 % (0.9-11.2); Lymphocytes Absolute Auto 1.57 K/mm3 (0.9-3.2); Lymphocytes Percent Auto 10.5 % (18.3-44.2); Mean Corpuscular Volume 87.6 fl (80-100); Mean Platelet Volume 11.4 fl (7.4-10.4); Monocytes Absolute Auto 0.8 K/mm3 (0.1-0.6); Monocytes Percent Auto 5.5 % (2.6-8.5); Neutrophils Percent Auto 80.4 % (45.5-73.1); Nucleated Red Blood Cells Perc 0.3 % (0.0-0.2); Platelet Count Result 133 k/mm3 (150-375); Red Blood Count 3.07 M/mm3 (4.2-5.4); Red Cell Distribution Width 13.5 % (11.5-14.5); White Blood Count 14.9 K/mm3 (4.5-10.0)
[2024-02-19 04:23] LABS: Alanine Aminotransferase 9 U/L (6-35); Albumin Level 2.7 g/dL (3.5-5.1); Alkaline Phosphatase 144 U/L (38-126); Anion Gap 3 mmol/L (4-12); Aspartate Amino Transferase 26 U/L (14-36); Bilirubin,Total 0.3 mg/dL (0.2-1.3); Blood Urea Nitrogen 9 mg/dL (7-17); Calcium 8.2 mg/dL (8.4-10.2); Carbon Dioxide 21 mmol/L (22-30); Chloride 112 mmol/L (98-107); Estimated CRCL calculation 134 ml/min; Estimated Glomerular Filt Rate > 60; Glucose 74 mg/dL (65-110); Potassium 3.8 mmol/L (3.4-5.0); Sodium 136 mmol/L (137-145)
[2024-02-19 07:40] VITALS: BP 134/79; PULSE 86; RESP 16; TEMP 37.2; O2SAT 100
[2024-02-19] MEDS: MEASLES,MUMPS,RUBELLA VACCINE 0.5 ML VIAL SUB-Q (08:51)
[2024-02-19] MEDS: POLYSACCHARIDE IRON COMPLEX 150 MG CAPSULE PO (08:58)
[2024-02-19] MEDS: MULTIVIT/MIN/PREN/FOL AC/IRON TABLET 1 TAB PO (08:59)
[2024-02-19] MEDS: DOCUSATE SODIUM 100 MG CAPSULE PO (08:59)
[2024-02-19] MEDS: ACETAMINOPHEN 325 MG TABLET 650 MG PO (08:59)
--- NOTE | 2024-02-19 12:37 | PM.OBDSVD ---
DS: Admitting Diagnosis Discharge Date February 19, 2024 Admitting Diagnosis DS: Discharge Diagnosis Discharge Diagnosis (1) , delivered: Code(s): O80 - Encounter for full-term uncomplicated delivery Status: Acute OB - DS: Summary OB Procedures : None OB Procedures Intrapartum: Spontaneous Vag Delivery OB Procedures: : None Peripartum Data Laceration Description: Periurethral Episiotomy description: None Time Spent with Patient Time attestation: Total time spent providing and/or coordinating discharge services: DS: Data Data Completed and Pending Pending studies at discharge: Pending at discharge 02/17/24 14:25 Surgical [PTH] Routine Labs on day of discharge: Labs from last 24 hours 02/19/24 02/19/24 04:02 03:53 WBC 14.9 H RBC 3.07 L Hgb 8.6 L Hct 26.9 L MCV 87.6 MCH 28.0 MCHC 32.0 RDW 13.5 Plt Count 133 L MPV 11.4 H Immature Gran % (Auto) 2.8 H Neut % (Auto) 80.4 H Lymph % (Auto) 10.5 L [place] % (Auto) 5.5 Eos % (Auto) 0.5 Baso % (Auto) 0.3 Lymph # (Auto) 1.57 [place] # (Auto) 0.8 H Eos # (Auto) 0.1 Baso # (Auto) 0.0 Abs Immat Gran (auto) 0.42 H Absolute Neuts (auto) 12.0 H Absolute Nucleated RBC 0.040 H Nucleated RBC % 0.3 H % Immature Plt Fraction 5.2 Sodium 136 L Potassium 3.8 Chloride 112 H Carbon Dioxide 21 L Anion Gap 3 L BUN 9 D Creatinine 0.60 L Estim Creat Clear Calc 134 Estimated GFR > 60 Glucose 74 Calcium 8.2 L Total Bilirubin 0.3 AST 26 ALT 9 Alkaline Phosphatase 144 H Total Protein 5.0 L Albumin 2.7 L Discharge Plan Discharge Discharging Clinician: Rio Leung Patient Disposition: Home, Self-Care Activity: as tolerated and pelvic rest Diet: as tolerated Patient Instructions: Antibiotic Form Stand Alone Forms: General Discharge Information Follow-up/Referrals: Rio Leung MD [Physician] - 1 Week Discharge Medications: New ibuprofen 600 mg Tablet 600 mg PO Q6H PRN (Reason: Cramping) Qty: 30 0RF Continued PNV no.82-lbhx-cpoll acid 30-975 mg-mcg Tablet 1 tablet PO DAILY sertraline 50 mg tablet 50 mg PO HS lamotrigine 100 mg tablet 100 mg PO BID aspirin [Adult Low Dose Aspirin] 81 mg tablet,delayed release (DR/EC) 81 mg PO DAILY albuterol sulfate 90 mcg/actuation HFA aerosol inhaler 1 inh inhalation Q4H PRN (Reason: shortness of breath or wheezing) Qty: 6.7 0RF Date of admission: 02/16/24 04:57 Primary Care Provider: Yoshi Guevara Admitting Provider: Rio Leung Attending physician on admission: Rio Leung Condition: Stable
[2024-02-19 13:04] VITALS: BP 130/80; PULSE 87; RESP 16; TEMP 36.8; O2SAT 98
[2024-02-22 13:49] VITALS: BP 127/78; PULSE 83; RESP 18; TEMP 37; O2SAT 98
== END 2024-02-19 16:15 | disposition home or self-care (01) | DRG 805 ==
LOC: ANHLDR 05:01 → ANHOB2 02-17 17:42
PROVIDERS: Admitting Provider Obstetrics & Gynecology; PCP Family Medicine; Visit Provider Obstetrics & Gynecology
DX: O14.04 Mild to moderate pre-eclampsia, complicating childbirth (principal); O41.1230 Chorioamnionitis, third trimester, not applicable or unspecified; Z37.0 Single live birth; Z3A.37 37 weeks gestation of pregnancy; O71.82 Other specified trauma to perineum and vulva
CPT/HCPCS: 36415; 80053; 85025; 85055; 86592; 86850; 86900; 86901; 87086; 88307; 90710; A9270; J1580; J2405; J2590; J2795; J7120; J7121

== ENCOUNTER 2024-02-23 08:27 | Outpatient (NON) | payer BC, SELFPAY ==
[2024-02-23 10:49] LABS: Collection Time Urine 24 HOURS
[2024-02-23 10:57] LABS: Specific Gravity Ur 1.008; Total Volume 24 Hour Urine 6400 ml
[2024-02-23 11:15] LABS: Creatinine Urine 21.7 mg/dL
[2024-02-23 11:22] LABS: Serum Creat 0.6
[2024-02-23 11:23] LABS: Creatinine Clearance Urine 135.5 ml/min (75-125); Patient Weight 220 Lbs
[2024-02-23 12:54] LABS: Total Protein Urine 24 Hr 2976 mg/24hr (0-149); Total Protein Urine Random 46.5 mg/dL (0.0-11.9)
== END 2024-02-23 08:28 | disposition home or self-care (01) ==
LOC: ANHOBOP 08:54
PROVIDERS: PCP Family Medicine; Visit Provider Obstetrics & Gynecology
DX: O16.5 Unspecified maternal hypertension, complicating the puerperium (principal)
CPT/HCPCS: 81050; 82575; 84156

== ENCOUNTER 2024-03-07 10:44 | Outpatient (CLI) | payer BC, SELFPAY ==
--- NOTE | ~2024-03-07 | US_ITS ---
Renal-Bladder ultrasound Clinical History: Proteinuria Technique: Real-time sonographic imaging of the kidneys and urinary bladder was performed. Findings: The right kidney measures 11.7 cm in length and the left kidney measures 12.9 cm. There is no hydronephrosis or renal calculus identified. Renal cortical echogenicity is within normal limits. No renal mass lesion is identified. The urinary bladder is moderately distended at the time of this exam. No intraluminal echoes are iden tified. No abnormal wall thickening is seen. Impression: Unremarkable ultrasound of the kidneys and urinary bladder. Reviewed, dictated and finalized at location M. Impression: Unremarkable ultrasound of the kidneys and urinary bladder.
== END 2024-03-07 10:45 ==
LOC: MICIMG 10:44
PROVIDERS: PCP Obstetrics & Gynecology; Visit Provider Family Medicine
DX: R80.9 Proteinuria, unspecified (principal)
CPT/HCPCS: 76775